=== PATIENT | female | born 1945 | race Caucasian/White ===

== ENCOUNTER 2021-01-07 06:18 | Day surgery (SDC) | payer MEDICARE, BC ==
[~2021-01-07] VITALS: Ht 157.5 cm; Wt 59.8 kg
[~2021-01-07 06:18] MED LIST: ALBU3IS INH; FLUSAL2505 INH; KEYTRUDA100 MG/41 IV; PRED20 PO; TIOT18; Ventolin5 MG/1 ML INH
--- NOTE | 2021-01-07 06:58 | NUR ---
Ambulatory in Day Surgery History, Chart, Medications and Allergies reviewed before start of procedure.Patient confirms NPO status and agrees with scheduled surgery. Patient reports completing Chlorhexadine shower X2 prior to admission to hospital.Surgical site prepped with 2% Chlorhexidine cloth wipe. Lungs DIMISHED T/O to Auscultation. Patient States Post-Procedure ride home has been arranged WITH
--- NOTE | 2021-01-07 08:15 | NUR ---
01/07/21 0815 Frances Meek all counts correct
--- NOTE | 2021-01-07 08:59 | NUR ---
CXR CLEAR PER DR DUNCAN/SUMMER
--- NOTE | 2021-01-07 09:38 | NUR ---
Patient up to Ambulate independently. Gait steady. Discharge instructions reviewed with patient. Patient verbalizes understanding. Copy given to patient to take home. Patient States Post-Procedure ride home has been arranged. Discharged via wheelchair to private car for ride home.
== END 2021-01-07 10:07 | disposition home or self-care (01) ==
LOC: ORSCMMR 06:18 → ORD 07:30 → ORSCMMR 10:07
PROVIDERS: Surgery
PROC: B543ZZA Ultrasonography of Right Jugular Veins, Guidance (ICD-10-PCS; principal; 2021-01-07 07:30)
PROC: 05HM33Z Insertion of Infusion Device into Right Internal Jugular Vein, Percutaneous Approach (ICD-10-PCS; principal; 2021-01-07 07:30)
DX: C34.90 Malignant neoplasm of unspecified part of unspecified bronchus or lung (principal); I10 Essential (primary) hypertension; J44.9 Chronic obstructive pulmonary disease, unspecified; Z87.891 Personal history of nicotine dependence
CPT/HCPCS: 77001; 93005; 93010; C1788; J0690; J1100; J1642; J2250; J2405; J2704; J3010; J7120

== ENCOUNTER → 2021-04-24 | Outpatient (CLI) | payer MEDICARE, BC ==
[~2021-04-24] MED LIST changes: +Prednisone10 MG PO
[2021-04-24 11:27] LABS: Source, Urine Clean Catch
[2021-04-24 13:36] LABS: Bilirubin, Urine Neg (Neg); Blood, Urine Neg (Neg); Glucose Qualitative, Urine Neg (Neg); Ketones, Urine Neg (Neg); Leukocyte Esterase, Urine 2+ (Neg); Nitrite, Urine Neg (Neg); Protein, Urine 1+ (Neg); Specific Gravity, Urine 1.015 (1.003-1.022); Urobilinogen, Urine NORM (Normal)
[2021-04-24 13:52] LABS: Appearance, Urine Clear (Clear); Color, Urine Yellow (P-Yellow)
[2021-04-24 13:54] LABS: Hyaline Casts 0-2 /lpf (0-2); Red Blood Cells, Urine Not Seen /hpf (0-2); Squamous Epithelial Cells Mod /hpf (Few)
[2021-04-24 13:55] LABS: Bacteria Mod /hpf
== END | disposition home or self-care (01) ==
LOC: LAB SHORT 11:24 → LAB 11:24
PROVIDERS: Obstetrics & Gynecology
DX: Z01.812 Encounter for preprocedural laboratory examination (principal)
CPT/HCPCS: 81001; 87086

== ENCOUNTER 2021-05-06 06:08 | Day surgery (SDC) | payer MEDICARE, BC ==
[2021-05-05 13:39] LABS: BASOPHILS ABSOLUTE AUTO 0.05 K/mm3 (0.00-0.23); BASOPHILS PERCENT AUTO 1 % (0-2); EOSINOPHILS ABSOLUTE AUTO 0.32 K/mm3 (0.00-0.68); EOSINOPHILS PERCENT AUTO 4 % (0-6); Hematocrit 43.2 % (33.0-51.0); Hemoglobin 13.8 g/dL (11.5-16.0); IMMATURE GRAN ABSOLUTE AUTO 0.05 K/mm3 (0.00-0.10); IMMATURE GRAN PERCENT AUTO 1 % (0-1); LYMPHOCYTES ABSOLUTE AUTO 1.28 K/mm3 (0.84-5.20); LYMPHOCYTES PERCENT AUTO 17 % (21-46); MONOCYTES ABSOLUTE AUTO 0.73 K/mm3 (0.16-1.47); MONOCYTES PERCENT AUTO 10 % (4-13); Mean Corpuscular HGB Conc 31.9 g/dL (31.5-36.5); Mean Corpuscular Volume 88 fL (80-100); Mean Platelet Volume 11.3 fL (9.1-12.4); NEUTROPHILS ABSOLUTE AUTO 5.23 K/mm3 (1.96-9.15); NEUTROPHILS PERCENT AUTO 68 % (41-73); Platelet Count 205 K/mm3 (150-400); RDW Coefficient Variation 14.8 % (11.7-14.2); RDW Standard Deviation 48.1 fL (35.1-46.3); Red Blood Cell Count 4.92 M/mm3 (3.80-5.20); White Blood Cell Count 7.66 K/mm3 (4.00-11.30)
[2021-05-05 14:26] LABS: Alanine Aminotransfer (ALT/SGP 17 U/L (12-78); Alk Phos 79 U/L (50-136); Anion Gap 7 mmol/L (6-16); Aspartate Aminotrans (AST/SGOT 20 U/L (12-37); Bilirubin, Total 0.5 mg/dL (0.1-1.0); Blood Urea Nitrogen 14 mg/dL (8-24); Bun/Creatinine Ratio 15.6 (12.0-20.0); CO2, Blood 26 mmol/L (21-32); Calcium, Blood 9.1 mg/dL (8.5-10.1); Chloride, Blood 105 mmol/L (98-108); Glomerular Filtration Rate >60 (60-); Glucose, Blood 113 mg/dL (70-99); Potassium, Blood 3.9 mmol/L (3.5-5.5); Sodium, Blood 138 mmol/L (136-145)
[~2021-05-06] VITALS: Ht 157.5 cm; Wt 129.8 kg
[~2021-05-06 06:08] MED LIST changes: -Prednisone10 MG PO
[2021-05-06] MEDS ORDERED: Prednisone10 MG PO (07:01)
--- NOTE | 2021-05-06 07:08 | NUR ---
05/06/21 0708 Kathy Bella TWO IV ATTEMPTS, FIRST ONE ON LEFT AC, INFILTRATED. PT TOLERATED IV ATTEMPTS WELL. SECOND IV ATTEMPT SUCCESSFUL. CALL LIGHT WITHIN REACH
== END 2021-05-06 09:18 | disposition home or self-care (01) ==
LOC: ORSCSDS 06:08
PROVIDERS: Obstetrics & Gynecology
PROC: 0UB98ZX Excision of Uterus, Via Natural or Artificial Opening Endoscopic, Diagnostic (ICD-10-PCS; principal; 2021-05-06 07:30)
PROC: 0UDB8ZX Extraction of Endometrium, Via Natural or Artificial Opening Endoscopic, Diagnostic (ICD-10-PCS; principal; 2021-05-06 07:30)
DX: N84.0 Polyp of corpus uteri (principal); Z01.818 Encounter for other preprocedural examination; C34.90 Malignant neoplasm of unspecified part of unspecified bronchus or lung; I10 Essential (primary) hypertension; J44.9 Chronic obstructive pulmonary disease, unspecified; Z87.891 Personal history of nicotine dependence; Z79.899 Other long term (current) drug therapy
CPT/HCPCS: 36415; 80053; 85025; 88305; J1100; J1885; J2250; J2370; J2405; J2704; J3010; J7120

== ENCOUNTER → 2022-05-14 | Outpatient (CLI) | payer MEDICARE, BC ==
[~2022-05-14] MED LIST changes: +Prednisone10 MG PO
[2022-05-14 09:37] LABS: BASOPHILS ABSOLUTE AUTO 0.06 K/mm3 (0.00-0.23); BASOPHILS PERCENT AUTO 1 % (0-2); EOSINOPHILS ABSOLUTE AUTO 0.18 K/mm3 (0.00-0.68); EOSINOPHILS PERCENT AUTO 2 % (0-6); Hemoglobin 12.3 g/dL (11.5-16.0); IMMATURE GRAN ABSOLUTE AUTO 0.11 K/mm3 (0.00-0.10); IMMATURE GRAN PERCENT AUTO 1 % (0-1); LYMPHOCYTES ABSOLUTE AUTO 1.45 K/mm3 (0.84-5.20); LYMPHOCYTES PERCENT AUTO 18 % (21-46); MONOCYTES ABSOLUTE AUTO 0.65 K/mm3 (0.16-1.47); MONOCYTES PERCENT AUTO 8 % (4-13); Mean Corpuscular HGB 27.8 pg (26.0-34.0); Mean Corpuscular HGB Conc 31.5 g/dL (31.5-36.5); Mean Corpuscular Volume 88 fL (80-100); Mean Platelet Volume 10.2 fL (9.1-12.4); NEUTROPHILS ABSOLUTE AUTO 5.55 K/mm3 (1.96-9.15); NEUTROPHILS PERCENT AUTO 69 % (41-73); Platelet Count 265 K/mm3 (150-400); RDW Coefficient Variation 13.8 % (11.7-14.2); RDW Standard Deviation 44.4 fL (35.1-46.3); Red Blood Cell Count 4.42 M/mm3 (3.80-5.20)
[2022-05-14 09:56] LABS: Albumin, Blood 2.9 g/dL (3.4-5.0); Albumin/Globulin Ratio 0.9 (0.8-1.8); Bilirubin, Total 0.3 mg/dL (0.1-1.0); Bun/Creatinine Ratio 26.2 (12.0-20.0); Calcium, Blood 7.5 mg/dL (8.5-10.1); Creatinine, Blood 0.8 mg/dL (0.40-1.00); Globulin, Blood 3.1 g/dL (2.2-4.0); Potassium, Blood 3.7 mmol/L (3.5-5.5)
== END | disposition home or self-care (01) ==
LOC: LAB SHORT 08:57 → LAB 08:57
PROVIDERS: Internal Medicine Hematology & Oncology
DX: C34.90 Malignant neoplasm of unspecified part of unspecified bronchus or lung (principal)
CPT/HCPCS: 80053; 85025